=== PATIENT | male | born 1960 | race Caucasian/White ===

== ENCOUNTER 2019-01-23 04:29 | Emergency (ER) | payer OTHER ==
[~2019-01-23] VITALS: Ht 175.3 cm; Wt 104.3 kg
[2019-01-23] MEDS ORDERED: LOSARTAN POTASS50 MG PO (04:47)
[2019-01-23] MEDS ORDERED: OMEPRAZOLE20 MG PO (04:48)
[2019-01-23] MEDS ORDERED: ALBU90OI6 INH (04:48)
[2019-01-23] MEDS ORDERED: ASPI325EC PO (04:49)
== END 2019-01-23 05:34 | disposition home or self-care (01) ==
LOC: ER 04:29
DX: S86.012A Strain of left Achilles tendon, initial encounter (principal); W01.0XXA Fall on same level from slipping, tripping and stumbling without subsequent striking against object, initial encounter; Z88.8 Allergy status to other drugs, medicaments and biological substances; Z79.899 Other long term (current) drug therapy; Z79.82 Long term (current) use of aspirin; I10 Essential (primary) hypertension
CPT/HCPCS: 29505; 73610; 99283-25

== ENCOUNTER 2020-11-09 08:47 | Emergency (ER) | payer OTHER ==
[~2020-11-09] VITALS: Ht 172.7 cm; Wt 103.4 kg
[~2020-11-09 08:47] MED LIST: ALBU90OI6 INH; ASPI325EC PO; LOSARTAN POTASS50 MG PO; OMEPRAZOLE20 MG PO
== END 2020-11-09 10:32 | disposition home or self-care (01) ==
LOC: ER 08:47
DX: M25.461 Effusion, right knee (principal); I10 Essential (primary) hypertension; Z88.6 Allergy status to analgesic agent; Z79.82 Long term (current) use of aspirin; Z79.899 Other long term (current) drug therapy; W01.198A Fall on same level from slipping, tripping and stumbling with subsequent striking against other object, initial encounter
CPT/HCPCS: 29505; 73562-LT; 99283-25; A9270